=== PATIENT | male | born 1960 | race Caucasian/White ===

== ENCOUNTER 2023-08-11 09:06 | Emergency (ER) | payer OTHER ==
[2023-08-11 09:35] LABS: BASOPHILS ABSOLUTE AUTO 0.1 K/mm3 (0.0-0.2); BASOPHILS PERCENT AUTO 0.6 % (0.0-1.0); EOSINOPHILS PERCENT AUTO 0.1 % (0.0-6.0); HEMATOCRIT 44.9 % (42.0-52.0); HEMOGLOBIN 15.1 gm/dl (14.0-18.0); IMMATURE GRAN ABSOLUTE AUTO 0.05 K/mm3 (0.00-0.05); IMMATURE GRAN PERCENT AUTO 0.4 % (0.0-0.4); LYMPHOCYTES ABSOLUTE AUTO 1.5 K/mm3 (1.0-4.8); LYMPHOCYTES PERCENT AUTO 12.3 % (24.0-44.0); MEAN CORPUSCULAR HEMOGLOBIN 31.1 pg (28.0-32.0); MEAN CORPUSCULAR HGB CONC 33.6 g/dl (32.0-36.0); MEAN CORPUSCULAR VOLUME 92.4 fl (83.0-99.0); MEAN PLATELET VOLUME 9.8 fl (9.4-12.4); MONOCYTES ABSOLUTE AUTO 1.1 K/mm3 (0.0-0.8); MONOCYTES PERCENT AUTO 8.8 % (0.0-8.0); NEUTROPHILS ABSOLUTE AUTO 9.3 K/mm3 (1.8-7.7); NEUTROPHILS PERCENT AUTO 77.8 % (41.0-71.0); PLATELET COUNT,PLT 300 K/mm3 (150-400); RED BLOOD CELL COUNT 4.86 M/mm3 (4.52-5.90)
[2023-08-11] MEDS: Sodium Chloride 0.9% 10 ML Syringe FLUSH PRN (09:40)
[2023-08-11] MEDS: Sodium Chloride 0.9% 1,000 ML IV SCH (09:42)
[2023-08-11 09:43] LABS: ANION GAP 14.7 (5-15); EST CRCL DRUG DOSING (CG) 84.07 mL/min; POTASSIUM,K 3.7 mEq/L (3.5-5.1)
[2023-08-11] MEDS: Ondansetron 4 MG/2 ML SDV IVPUSH ONE (10:58)
[2023-08-11] MEDS: Morphine 4 MG/ML Syringe IVPUSH ONE (11:01)
[2023-08-11] MEDS: Ketamine 200 MG/20 ML MDV IVPUSH ONE (11:11)
== END 2023-08-11 12:40 | disposition home or self-care (01) ==
LOC: JD.ED 09:06 → SUPCPDRO 09:06 → JD.ED 12:40
DX: S43.015A Anterior dislocation of left humerus, initial encounter (principal); W10.9XXA Fall (on) (from) unspecified stairs and steps, initial encounter; Z79.899 Other long term (current) drug therapy
CPT/HCPCS: 23650; 36415; 73030; 80048; 85025; 96361; 96374; 96375; 99152; 99283; J2270; J2405; J3490; J7030